=== PATIENT | male | born 1960 | race Caucasian/White ===

== ENCOUNTER → 2019-05-13 16:59 | Outpatient (CLI) | payer BC, SELFPAY ==
[2019-05-13 17:39] LABS: C-Reactive Protein < 0.2 mg/L (0.0-0.9)
[2019-05-13 18:23] LABS: Erythrocyte Sedimentation Rate 8 mm/hr (0-20)
[2019-05-16 23:07] LABS: IgG P18 Ab. Present (.); IgG P23 Ab. Absent (.); IgG P28 Ab. Present (.); IgG P30 Ab. Absent (.); IgG P39 Ab. Absent (.); IgG P41 Ab. Present (.); IgG P45 Ab. Absent (.); IgG P58 Ab. Absent (.); IgG P66 Ab. Absent (.); IgG P93 Ab. Absent (.); IgM P23 Ab. Absent (.); IgM P39 Ab. Absent (.); IgM P41 Ab. Absent (.)
[2019-05-17 07:10] LABS: Lyme IgG WB Interp. Negative (.); Lyme IgM WB Interp. Negative (.)
== END ==
PROVIDERS: Visit Provider Emergency Medicine
DX: R53.83 Other fatigue (principal)
CPT/HCPCS: 85651; 86140; 86617

== ENCOUNTER → 2020-05-27 17:45 | Outpatient (CLI) | payer BC, SELFPAY ==
[2020-05-27 20:01] LABS: Coronavirus 19 IgG Antibody Negative (Negative); Coronavirus 19 IgM Antibody Negative (Negative)
== END ==
PROVIDERS: Visit Provider Physician Assistant
DX: Z01.84 Encounter for antibody response examination (principal)
CPT/HCPCS: 86328

== ENCOUNTER → 2020-11-02 11:42 | Outpatient (POV) | payer BC, SELFPAY | PROVIDERS: Visit Provider Nurse Practitioner Family | DX: Z00.00 Encounter for general adult medical examination without abnormal findings (principal) ==

== ENCOUNTER → 2020-12-14 14:40 | Outpatient (CLI) | payer BC, SELFPAY ==
[2020-12-14 16:05] LABS: Basophils # 0.1 K/mm3 (0-0.2); Basophils % 0.9 % (0.1-2.0); Chloride 104 mmol/L (98-107); Eosinophils # 0.4 K/mm3 (0.0-0.4); Eosinophils % 5.8 % (0.1-12.0); Hematocrit 46.3 % (42.0-52.0); Hemoglobin 15.5 g/dL (14.1-18.0); Lymphocytes # 1.8 K/mm3 (0.7-4.5); Lymphocytes % 27.1 % (10-50); Mean Corpuscular HGB Conc 33.5 g/dL (31.8-35.4); Mean Corpuscular Hemoglobin 30.2 pg (27.0-31.2); Mean Corpuscular Volume 90.3 fl (80-94); Mean Platelet Volume 8.8 fl (7.4-10.4); Monocytes # 0.5 K/mm3 (0.1-1.0); Neutrophils # 3.9 K/mm3 (1.8-7.8); Neutrophils % 59.2 % (37.0-80.0); Platelet Count 236 K/mm3 (142-424); Red Blood Count 5.13 M/mm3 (4.60-6.20); Red Cell Distribution Width 14.2 % (11.5-17.5); Sodium 140 mmol/L (136-145); White Blood Count 6.6 K/mm3 (4.8-10.8)
[2020-12-14 16:06] LABS: Potassium 4.7 mmoL/L (3.5-5.1)
[2020-12-14 16:08] LABS: Alanine Aminotransferase 42 U/L (12-78); Albumin Level 4.5 g/dl (3.5-5.0); Albumin/Globulin Ratio 1.4 (1.1-1.8); Alkaline Phosphatase 71 U/L (38-126); Anion Gap 14.7 mEq/L (5-15); Aspartate Amino Transferase 42 U/L (17-59); Bilirubin,Total 0.7 mg/dl (0.2-1.3); Blood Urea Nitrogen 15 mg/dl (9-20); Carbon Dioxide 26 mmol/L (22.0-30.0); Cholesterol 213 mg/dl (140-200); Estimated Glomerular Filt Rate 76 ml/min (>60); GFR (African American) 93 ML/MIN (>60); Globulin 3.2 g/dL (1.3-3.2); Total Protein,Serum 7.7 g/dl (6.3-8.2); Triglycerides 168 mg/dl (30-150); VLDL Cholesterol 34 mg/dL (0-40)
[2020-12-14 16:09] LABS: Calcium 9.7 mg/dl (8.4-10.2); Chol/HDL Ratio 6.7 (1-3.5); Glucose 150 mg/dl (74-100); HDL Cholesterol 32 mg/dl (40-60)
[2020-12-14 16:21] LABS: Direct LDL Cholesterol 154.46 mg/dL (100-129)
[2020-12-14 16:24] LABS: Free T4 (Free Thyroxine) 1.03 ng/dl (0.78-2.19)
[2020-12-14 16:37] LABS: Thyroid Stimulating Hormone 2.99 uIU/mL (0.465-4.68)
[2020-12-14 21:49] LABS: Prostate Specific Ag Screen 4.6 ng/ml (0.0-4.0)
[2020-12-15 08:24] LABS: Hemoglobin A1C 6.5 % (4.0-6.0)
== END ==
PROVIDERS: Visit Provider Physician Assistant
DX: Z00.00 Encounter for general adult medical examination without abnormal findings (principal); R53.83 Other fatigue; R73.09 Other abnormal glucose; E55.9 Vitamin D deficiency, unspecified; Z12.5 Encounter for screening for malignant neoplasm of prostate
CPT/HCPCS: 80053; 80061; 82306; 83036; 84439; 84443; 85025; G0103

== ENCOUNTER → 2021-02-01 09:11 | Outpatient (POV) | payer BC, SELFPAY | PROVIDERS: Visit Provider Nurse Practitioner Family | DX: Z00.00 Encounter for general adult medical examination without abnormal findings (principal) ==

== ENCOUNTER 2021-08-26 14:20 | Emergency (ER) | payer BC, SELFPAY ==
[2021-08-26 16:06] VITALS: BP 157/100; PULSE 83; RESP 16; TEMP 36.6; O2SAT 96; BMI 31.1
--- NOTE | 2021-08-26 16:14 | HMH.EDUTC ---
[facility] [place] Clinical Impression: Low back pain Qualifiers: Chronicity: unspecified Back pain laterality: unspecified Sciatica presence: without sciatica Qualified Code(s): M54.50 - Low back pain, unspecified UTI (urinary tract infection) Qualifiers: Urinary tract infection type: site unspecified Hematuria presence: without hematuria Qualified Code(s): N39.0 - Urinary tract infection, site not specified Disposition: Home, Self-Care Condition on Discharge: Good Instructions: DI for Low Back Pain Additional Instructions: Drink plenty of fluids. Take tylenol or ibuprofen for pain or fever. Take the medications as directed. Follow up with your regular doctor. GO TO THE ER FOR ANY WORSENING SYMPTOMS Prescriptions: Sulfamethoxazole/Trimethoprim [Bactrim DS tablet] 1 each PO BID 10 Days #20 tab Transmission Status: Received by [id number] methylPREDNISolone [Medrol] 4 mg PO DIRECTED 6 Days #21 packet Transmission Status: Received by [facility] Referrals: Raymundo Fonseca MD [Primary Care Provider] - Time of Disposition: 16:34 Medical Decision Making - Medical Records Medical records reviewed: No: I reviewed the patient's medical records. - Jamie Inquiry Pt receiving controlled substance: No Vital Signs: 08/26/21 16:06 08/26/21 16:48 Temperature 97.8 F 97.8 F Temperature Source Oral Pulse Rate 83 Pulse Rate [Left] 83 Respiratory Rate 16 16 Blood Pressure 157/100 H Blood Pressure [Right Arm] 157/100 H Blood Pressure Mean [Right Arm] 119 02 Sat by Pulse Oximetry 96 - Lab Data Lab results reviewed: Yes: I reviewed the patient's lab results. Lab Results 08/26/21 16:20: Urine Color Dark yellow, Urine Appearance Clear, Urine pH 6.5, Ur Specific [place] 1.025, Urine Protein 1+, Urine Glucose (UA) Trace, Urine Ketones Negative, Urine Blood Negative, Urine Nitrate Negative, Urine Bilirubin Negative, Urine Urobilinogen 0.2, Ur Leukocyte Esterase Negative Orders (Tests/Meds): ORDERS Category Date Time Status Urine Culture Stat Micro 08/26/21 14:26 Received [facility] [place] HPI - General Stated complaint: possible kidney infection Time Seen by Provider: 08/26/21 16:14 Mode of Arrival: Ambulatory Source of Information: Patient Limitations: No Limitations Description of Symptoms (Recalled from Triage Doc. by RN): PT C/O L FLANK PAIN. STATES HIS GIRLFRIEND HAS A UTI. HEENT Symptoms (Recalled from RN notes): No Resp Symptoms (Recalled from RN notes): No Skin Symptoms (Recalled from RN notes): No MS Symptoms (Recalled from RN notes): No Functional Status (Recalled from RN notes): NA - History of Present Illness Provider Complaint: He states that for the past week or so he has had left sided low back pain that does not radiate any where. He denies any fever or chills. He denies feeling bad. He thought that he may have a uti or a prostate infection because he has had similar symptoms before. - Related Data Previous Rx's Medication Instructions Recorded ergocalciferol (vitamin D2) 1,250 1,250 mcg PO WEEKLY #5 cap 12/17/20 mcg (50,000 unit) capsule valacyclovir 1 gram tablet 1,000 mg PO BID PRN #30 tab 06/03/21 Sulfamethoxazole/Trimethoprim 1 each PO BID 10 Days #20 tab 08/26/21 [Bactrim DS tablet] methylPREDNISolone [Medrol] 4 mg PO DIRECTED 6 Days #21 08/26/21 packet Allergies Allergy/AdvReac Type Severity Reaction Status Date / Time No Known Allergies Allergy Verified 12/24/20 09:24 - Worker's Comp Is this a Worker's Comp case?: No [facility] History - Hepatitis A Screen Drug use history?: No High risk sexual behaviors?: No History of sexually transmitted infection?: No Currently employed?: No Childcare worker?: No Do you have indoor plumbing?: Yes Do you have electricity?: Yes Attestation statement:: This patient has been screened for Hepatitis A risk factors. I have reviewed the patient's past medical history: Yes Medical
[2021-08-26 16:20] LABS: Apearance,Urine Clear (Clear); Color,Urine Dark Yellow (Yellow); PH,Urine 6.5 (5.0-8.5); Protein,Urine 1+ (Negative); Specific Gravity, Urine 1.025 (1.005-1.030)
[2021-08-26 16:21] LABS: Bilirubin,Urine Negative (Negative); Blood, Urine Negative (Negative); Glucose,Urine (UA) Trace (Negative); Ketones,Urine Negative (Negative); UTC Leukocyte Esterase,Urine Negative (Negative); UTC Nitrate,Urine Negative (Negative); Urobilinogen,Urine 0.2 EU/dl (0.2)
[2021-08-26 16:48] VITALS: BP 157/100; PULSE 83; RESP 16; TEMP 36.6
[2021-08-30 20:08] LABS: Neisseria gonorrhoeae, NAA Negative (Negative)
== END 2021-08-26 16:49 | disposition home or self-care (01) ==
PROVIDERS: Emergency Provider Nurse Practitioner Family; PCP Emergency Medicine
DX: N30.00 Acute cystitis without hematuria (principal); I10 Essential (primary) hypertension
CPT/HCPCS: 81003; 87086; 87491; 87591; 99202; G0463

== ENCOUNTER → 2022-01-18 11:22 | Outpatient (CLI) | payer BC, SELFPAY ==
[2022-01-19 08:37] LABS: PSA, Free 0.96 ng/mL; Prostate Specific Ag 4.7 ng/mL (0.0-4.0)
== END ==
PROVIDERS: Visit Provider Urology
DX: N40.0 Benign prostatic hyperplasia without lower urinary tract symptoms (principal)
CPT/HCPCS: 36415; 84153; 84154

== ENCOUNTER → 2022-01-28 18:37 | Outpatient (CLI) | payer BC, SELFPAY ==
[2022-01-28 18:45] LABS: Adenovirus,PCR Not Detected (NotDetected); Bordetella Pertussis Not Detected (NotDetected); Chlamydophila Pneumoniae, PCR Not Detected (NotDetected); Coronavirus 19, PCR Not Detected (NotDetected); Coronavirus 229E Not Detected (NotDetected); Coronavirus NL63 Not Detected (NotDetected); Coronavirus OC43 Not Detected (NotDetected); Coronovirus HKU1,PCR Not Detected (NotDetected); Human Metapneumovirus Not Detected (NotDetected); Influenza A, PCR Not Detected (NotDetected); Influenza AH1, 2009 Not Detected (NotDetected); Influenza AH1, PCR Not Detected (NotDetected); Influenza AH3,PCR Not Detected (NotDetected); Influenza B, PCR Not Detected (NotDetected); Mycoplasma Pneumoniae, PCR Not Detected (NotDetected); Parainfluenza 1, PCR Not Detected (NotDetected); Parainfluenza 2, PCR Not Detected (NotDetected); Parainfluenza 3, PCR Not Detected (NotDetected); Parainfluenza 4, PCR Not Detected (NotDetected); Respiratory Syncytial Virus Not Detected (NotDetected); Rhinovirus/Enterovirus Not Detected (NotDetected)
== END ==
PROVIDERS: Visit Provider Nurse Practitioner Family
DX: Z11.52 Encounter for screening for COVID-19 (principal); R42 Dizziness and giddiness; R68.89 Other general symptoms and signs
CPT/HCPCS: 87581; 87632; 87798; C9803; U0003; U0005

== ENCOUNTER → 2022-03-01 16:10 | Outpatient (CLI) | payer BC, SELFPAY ==
[2022-03-01 13:58] LABS: Alanine Aminotransferase 46 U/L (12-78); Albumin Level 4.4 g/dl (3.5-5.0); Albumin/Globulin Ratio 1.8 (1.1-1.8); Alkaline Phosphatase 84 U/L (38-126); Anion Gap 11.4 mEq/L (5-15); Aspartate Amino Transferase 34 U/L (17-59); Bilirubin,Total 0.4 mg/dl (0.2-1.3); Blood Urea Nitrogen 14 mg/dl (9-20); Calcium 9.2 mg/dl (8.4-10.2); Carbon Dioxide 29 mmol/L (22.0-30.0); Chloride 102 mmol/L (98-107); Chol/HDL Ratio 6.9 (1-3.5); Cholesterol 200 mg/dl (140-200); Estimated Glomerular Filt Rate 98 ml/min (>60); GFR (African American) 119 ML/MIN (>60); Globulin 2.4 g/dL (1.3-3.2); Glucose 216 mg/dl (74-100); HDL Cholesterol 29 mg/dl (40-60); Potassium 4.4 mmoL/L (3.5-5.1); Sodium 138 mmol/L (136-145); Total Protein,Serum 6.8 g/dl (6.3-8.2); Triglycerides 113 mg/dl (30-150); VLDL Cholesterol 23 mg/dL (0-40)
[2022-03-01 14:01] LABS: Basophils # 0.1 K/mm3 (0-0.2); Eosinophils # 0.3 K/mm3 (0.0-0.4); Hematocrit 46.3 % (42.0-52.0); Hemoglobin 16.4 g/dL (14.1-18.0); Lymphocytes # 1.7 K/mm3 (0.7-4.5); Lymphocytes % 26.1 % (10-50); Mean Corpuscular HGB Conc 35.4 g/dL (31.8-35.4); Mean Corpuscular Hemoglobin 32.4 pg (27.0-31.2); Mean Corpuscular Volume 91.5 fl (80-94); Mean Platelet Volume 8.7 fl (7.4-10.4); Monocytes # 0.5 K/mm3 (0.1-1.0); Monocytes % 8.4 % (1.7-9.3); Neutrophils # 3.8 K/mm3 (1.8-7.8); Neutrophils % 59.5 % (37.0-80.0); Platelet Count 243 K/mm3 (142-424); Red Blood Count 5.06 M/mm3 (4.60-6.20); Red Cell Distribution Width 14.2 % (11.5-17.5); White Blood Count 6.4 K/mm3 (4.8-10.8)
[2022-03-01 14:10] LABS: Direct LDL Cholesterol 140.01 mg/dL (100-129)
[2022-03-01 14:15] LABS: Free T4 (Free Thyroxine) 1.13 ng/dl (0.78-2.19)
[2022-03-01 14:16] LABS: 25-OH Vitamin D, Total 31.4 ng/mL (30-100)
[2022-03-01 14:30] LABS: Prostate Specific Ag Screen 5.8 ng/ml (0.0-4.0); Thyroid Stimulating Hormone 2.27 uIU/mL (0.465-4.68)
[2022-03-02 09:54] LABS: Testosterone,Total 325 ng/dL (264-916)
== END ==
PROVIDERS: PCP Emergency Medicine; Visit Provider Emergency Medicine
DX: E11.9 Type 2 diabetes mellitus without complications (principal); S30.1XXA Contusion of abdominal wall, initial encounter; E55.9 Vitamin D deficiency, unspecified; Z79.84 Long term (current) use of oral hypoglycemic drugs
CPT/HCPCS: 80053; 80061; 82306; 83036; 84403; 84439; 84443; 85025; G0103

== ENCOUNTER → 2022-10-11 09:49 | Outpatient (CLI) | payer BC, SELFPAY ==
[2022-10-11 18:04] LABS: Basophils # 0.2 K/mm3 (0-0.2); Basophils % 2.6 % (0.1-2.0); Eosinophils # 0.4 K/mm3 (0.0-0.4); Eosinophils % 6.3 % (0.1-12.0); Hematocrit 49.1 % (42.0-52.0); Hemoglobin 16.2 g/dL (14.1-18.0); Lymphocytes # 1.6 K/mm3 (0.7-4.5); Lymphocytes % 24.9 % (10-50); Mean Corpuscular Hemoglobin 30.7 pg (27.0-31.2); Mean Platelet Volume 9.7 fl (7.4-10.4); Monocytes # 0.4 K/mm3 (0.1-1.0); Monocytes % 6.4 % (1.7-9.3); Neutrophils # 3.9 K/mm3 (1.8-7.8); Neutrophils % 59.8 % (37.0-80.0); Platelet Count 227 K/mm3 (142-424); Red Blood Count 5.28 M/mm3 (4.60-6.20); Red Cell Distribution Width 14.1 % (11.5-17.5); White Blood Count 6.4 K/mm3 (4.8-10.8)
[2022-10-11 18:06] LABS: Alanine Aminotransferase 65 U/L (12-78); Albumin Level 4.1 g/dl (3.5-5.0); Albumin/Globulin Ratio 1.6 (1.1-1.8); Alkaline Phosphatase 82 U/L (38-126); Amylase 48 U/L (30-110); Aspartate Amino Transferase 58 U/L (17-59); Bilirubin,Total 0.6 mg/dl (0.2-1.3); Blood Urea Nitrogen 19 mg/dl (9-20); Carbon Dioxide 28 mmol/L (22.0-30.0); Chloride 101 mmol/L (98-107); Chol/HDL Ratio 9.3 (1-3.5); Cholesterol 139 mg/dl (140-200); Estimated Glomerular Filt Rate 86 ml/min (>60); GFR (African American) 104 ML/MIN (>60); Globulin 2.6 g/dL (1.3-3.2); Glucose 232 mg/dl (74-100); HDL Cholesterol 15 mg/dl (40-60); Lipase 97 U/L (23-300); Sodium 138 mmol/L (136-145); Total Protein,Serum 6.7 g/dl (6.3-8.2); Triglycerides 135 mg/dl (30-150); VLDL Cholesterol 27 mg/dL (0-40)
[2022-10-11 18:14] LABS: Hemoglobin A1C 10.5 % (4.0-6.0)
[2022-10-11 18:17] LABS: Direct LDL Cholesterol 107.34 mg/dL (100-129)
== END ==
PROVIDERS: PCP Student in an Organized Health Care Education/Training Program; Visit Provider Student in an Organized Health Care Education/Training Program
DX: R19.7 Diarrhea, unspecified (principal); R19.4 Change in bowel habit
CPT/HCPCS: 80053; 80061; 82150; 83036; 83690; 85025

== ENCOUNTER → 2022-12-01 09:20 | Outpatient (CLI) | payer BC, SELFPAY ==
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
== END ==
PROVIDERS: PCP Student in an Organized Health Care Education/Training Program; Visit Provider Student in an Organized Health Care Education/Training Program
DX: R10.9 Unspecified abdominal pain (principal); R11.2 Nausea with vomiting, unspecified; R19.7 Diarrhea, unspecified
CPT/HCPCS: 76700

== ENCOUNTER → 2023-01-02 10:17 | Outpatient (CLI) | payer BC, SELFPAY ==
--- NOTE | 2023-01-02 10:18 | NM_ITS ---
FINAL REPORT TECHNIQUE: The patient was injected with 8.31 mCi of technetium 99m Choletec and subsequently 2.2 mcg of Kinevac. Images of the abdomen were obtained for one hour. CLINICAL HISTORY: ABDOMINAL PAIN 10:40AM 8.31MCI TC CHOLETEC 11:45AM 2.2MCG CCK INJ INTO LT ANT PT C/O ABDOMINAL PAIN WITH CCK FINDINGS: Hepatic uptake is normal. There is gallbladder and small bowel activity at 30 minutes. Post Kinevac images render an ejection fraction of 10%. IMPRESSION: Abnormally depressed ejection fraction. Reviewed, Interpreted and Dictated by Abhi Greene MD Transcribed by Kelly Kaba Authenticated and [facility]
== END ==
LOC: RAD 10:18
PROVIDERS: PCP Emergency Medicine; Visit Provider Emergency Medicine
DX: R10.9 Unspecified abdominal pain (principal)
CPT/HCPCS: 78226; A9537; J2805

== ENCOUNTER 2023-12-14 22:35 | Outpatient (CLI) | payer BC, SELFPAY ==
[2023-12-14 18:51] LABS: Basophils # 0.1 K/mm3 (0-0.2); Basophils % 0.8 % (0.1-2.0); Eosinophils # 0.2 K/mm3 (0.0-0.4); Eosinophils % 1.4 % (0.1-12.0); Hematocrit 56.4 % (42.0-52.0); Lymphocytes # 1.9 K/mm3 (0.7-4.5); Lymphocytes % 18.5 % (10-50); Mean Corpuscular Volume 96.6 fl (80-94); Mean Platelet Volume 9.6 fl (7.4-10.4); Monocytes # 0.7 K/mm3 (0.1-1.0); Monocytes % 6.5 % (1.7-9.3); Neutrophils # 7.6 K/mm3 (1.8-7.8); Neutrophils % 72.8 % (37.0-80.0); Platelet Count 246 K/mm3 (142-424); Red Blood Count 5.84 M/mm3 (4.60-6.20); Red Cell Distribution Width 13.9 % (11.5-17.5); White Blood Count 10.4 K/mm3 (4.8-10.8)
[2023-12-14 19:01] LABS: Hemoglobin 18.1 g/dL (14.1-18.0)
[2023-12-14 19:46] LABS: Alanine Aminotransferase 36 U/L (12-78); Albumin Level 4.7 g/dl (3.5-5.0); Albumin/Globulin Ratio 1.6 (1.1-1.8); Alkaline Phosphatase 79 U/L (38-126); Amylase 64 U/L (30-110); Anion Gap 13.3 mEq/L (5-15); Aspartate Amino Transferase 34 U/L (17-59); Bilirubin,Direct 0.2 mg/dl (0.0-0.4); Bilirubin,Indirect 0.8 mg/dL (0.0-0.9); Bilirubin,Unconjugated 0.8 mg/dL (0.0-1.1); Blood Urea Nitrogen 17 mg/dl (9-20); Calcium 9.6 mg/dl (8.4-10.2); Carbon Dioxide 22 mmol/L (22.0-30.0); Chloride 104 mmol/L (98-107); Chol/HDL Ratio 8.8 (1-3.5); Cholesterol 229 mg/dl (140-200); Estimated Glomerular Filt Rate 86 ml/min (>60); GFR (African American) 103 ML/MIN (>60); Glucose 207 mg/dl (74-100); HDL Cholesterol 26 mg/dl (40-60); Lipase 116 U/L (23-300); Potassium 5.3 mmoL/L (3.5-5.1); Sodium 134 mmol/L (136-145); Total Protein,Serum 7.7 g/dl (6.3-8.2); Triglycerides 185 mg/dl (30-150); VLDL Cholesterol 37 mg/dL (0-40)
[2023-12-14 19:51] LABS: 25-OH Vitamin D, Total 29.6 ng/mL (30-100)
[2023-12-14 20:01] LABS: Direct LDL Cholesterol 163.41 mg/dL (100-129)
[2023-12-14 20:18] LABS: Hemoglobin A1C 10.9 % (4.0-6.0)
[2023-12-14 20:20] LABS: Prostate Specific Ag Screen 4.6 ng/ml (0.0-4.0); Thyroid Stimulating Hormone 2.77 uIU/mL (0.465-4.68)
[2023-12-14 20:39] LABS: Vitamin B12 750 pg/mL (239-931)
[2023-12-16 11:50] LABS: Testosterone,Total 221 ng/dL (264-916)
== END 2023-12-14 23:59 ==
LOC: LAB.DROPOF 22:35
PROVIDERS: PCP Family Medicine; Visit Provider Family Medicine
DX: R10.9 Unspecified abdominal pain (principal); E11.9 Type 2 diabetes mellitus without complications; E66.9 Obesity, unspecified; E55.9 Vitamin D deficiency, unspecified; R10.11 Right upper quadrant pain; Z79.84 Long term (current) use of oral hypoglycemic drugs; Z68.31 Body mass index [BMI] 31.0-31.9, adult; Z79.899 Other long term (current) drug therapy; Z12.5 Encounter for screening for malignant neoplasm of prostate
CPT/HCPCS: 80053; 80061; 80076; 82150; 82306; 82607; 83036; 83690; 84403; 84443; 85025; G0103

== ENCOUNTER → 2024-03-01 10:15 | Outpatient (CLI) | payer BC, SELFPAY | LOC: SL 10:16 | PROVIDERS: PCP Family Medicine; Visit Provider Family Medicine | DX: G47.33 Obstructive sleep apnea (adult) (pediatric) (principal); G47.36 Sleep related hypoventilation in conditions classified elsewhere | CPT/HCPCS: G0399 ==

== ENCOUNTER 2024-03-09 14:22 | Emergency (ER) | payer OTHER, SELFPAY ==
[2024-03-09] VITALS (10 sets, daily range): BP systolic 141–185; BP diastolic 70–118; PULSE 54–89; RESP 13–16; TEMP 36.6; O2SAT 92–99; BMI 32.1
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
[2024-03-09 14:59] LABS: Chloride 100 mmol/L (98-107)
[2024-03-09 15:00] LABS: Potassium 5.2 mmoL/L (3.5-5.1); Sodium 132 mmol/L (136-145)
[2024-03-09 15:02] LABS: Alanine Aminotransferase 43 U/L (12-78); Aspartate Amino Transferase 38 U/L (17-59); Blood Urea Nitrogen 20 mg/dl (9-20); Creatinine Clearance Estimated 112 mL/min (50-200); Estimated Glomerular Filt Rate 75 ml/min (>60); GFR (African American) 91 ML/MIN (>60)
[2024-03-09 15:03] LABS: Albumin Level 4.7 g/dl (3.5-5.0); Albumin/Globulin Ratio 1.5 (1.1-1.8); Alkaline Phosphatase 91 U/L (38-126); Anion Gap 14.2 mEq/L (5-15); Bilirubin,Total 0.7 mg/dl (0.2-1.3); Calcium 9.5 mg/dl (8.4-10.2); Carbon Dioxide 23 mmol/L (22.0-30.0); Globulin 3.1 g/dL (1.3-3.2); Total Protein,Serum 7.8 g/dl (6.3-8.2)
[2024-03-09 15:05] LABS: Glucose 436 mg/dl (74-100)
[2024-03-09 15:06] LABS: Activated Partial Thrombo Time 25.4 seconds (22.8-30.6); Prothrombin Time 10.8 seconds (10.1-12.5)
[2024-03-09] MEDS: IOPAMIDOL-370 (76%);100ML BOTTLE 100 ML IV ×2 (15:38→15:45)
[2024-03-09] MEDS: SODIUM CHLORIDE 0.9% 10ML SYR (RAD ONLY) 10 ML IV ×2 (15:38→15:45)
[2024-03-09] MEDS: 0.9 % SODIUM CHLORIDE 50 ML VIAL IV (15:45)
[2024-03-09] MEDS: LACTATED RINGERS 1000ML 1,000 ML 999 ML IV (16:03)
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
[2024-03-09] MEDS: ONDANSETRON 4MG/2ML VIAL 4 MG IV (17:03)
--- NOTE | 2024-03-09 17:34 | ECG_ITS ---
APPROVED REPORT Exam: Resting ECG HR:71 bpm ECG Measurements Heart Rate 71 AXES MO 172 P 36 QRSd 86 QRS 9 QT 372 T 5 QTc 394 Conclusion SINUS RHYTHM POSSIBLE ANTERIOR MYOCARDIAL INFARCTION , OF INDETERMINATE AGE [30 ms Q WAVE IN V3/V4, OR R < 0.2 mV IN V4] ABNORMAL ECG Electronically signed by : CUONG ABDI, 03/10/2024 00:53:29
[2024-03-09] MEDS: METOCLOPRAMIDE HCL 10MG/2ML VIAL 5 MG IVP (17:43)
[2024-03-09 18:18] LABS: Troponin I < 0.01 ng/ml (0.00-0.034)
[2024-03-09 19:04] LABS: Lipase 70 U/L (23-300)
[2024-03-09] MEDS: SODIUM CHLORIDE 0.9% 25ML BAG 25 ML IV (19:12)
[2024-03-09] MEDS: PROMETHAZINE HCL 25MG/ML 1ML VIAL 12.5 MG IV (19:12)
== END 2024-03-09 20:18 | disposition home or self-care (01) ==
PROVIDERS: Emergency Medicine; Emergency Provider Emergency Medicine; PCP Physician Assistant
DX: M54.2 Cervicalgia; R51.9 Headache, unspecified; R11.2 Nausea with vomiting, unspecified; E11.65 Type 2 diabetes mellitus with hyperglycemia; R61 Generalized hyperhidrosis; V49.40XA Driver injured in collision with unspecified motor vehicles in traffic accident, initial encounter; Z79.84 Long term (current) use of oral hypoglycemic drugs; Z79.85 Long-term (current) use of injectable non-insulin antidiabetic drugs; Y92.410 Unspecified street and highway as the place of occurrence of the external cause
CPT/HCPCS: 70450; 70496; 70498; 71275; 72125; 72128; 72131; 73000; 73030; 74174; 80053; 83690; 84484; 85610; 85730; 93005; 96361; 96374; 96375; 99285; J2405; J7120; Q9967

== ENCOUNTER 2024-09-23 15:30 | Outpatient (CLI) | payer BC, SELFPAY ==
[2024-09-23 18:38] LABS: Basophils # 0.1 K/mm3 (0-0.2); Basophils % 1.4 % (0.1-2.0); Eosinophils # 0.3 K/mm3 (0.0-0.4); Eosinophils % 3.9 % (0.1-12.0); Hematocrit 48.6 % (42.0-52.0); Hemoglobin 16.3 g/dL (14.1-18.0); Lymphocytes # 2.2 K/mm3 (0.7-4.5); Lymphocytes % 28.8 % (10-50); Mean Corpuscular HGB Conc 33.6 g/dL (31.8-35.4); Mean Corpuscular Hemoglobin 29.9 pg (27.0-31.2); Mean Corpuscular Volume 88.9 fl (80-94); Mean Platelet Volume 8.6 fl (7.4-10.4); Monocytes # 0.6 K/mm3 (0.1-1.0); Monocytes % 8.4 % (1.7-9.3); Neutrophils # 4.3 K/mm3 (1.8-7.8); Neutrophils % 57.4 % (37.0-80.0); Platelet Count 198 K/mm3 (142-424); Red Blood Count 5.47 M/mm3 (4.60-6.20); Red Cell Distribution Width 13.9 % (11.5-17.5); White Blood Count 7.5 K/mm3 (4.8-10.8)
[2024-09-23 19:05] LABS: Alanine Aminotransferase 36 U/L (12-78); Albumin Level 4.6 g/dl (3.5-5.0); Albumin/Globulin Ratio 1.8 (1.1-1.8); Alkaline Phosphatase 64 U/L (38-126); Anion Gap 15.8 mEq/L (5-15); Aspartate Amino Transferase 30 U/L (17-59); Bilirubin,Total 0.5 mg/dl (0.2-1.3); Blood Urea Nitrogen 20 mg/dl (9-20); Calcium 9.8 mg/dl (8.4-10.2); Carbon Dioxide 26 mmol/L (22.0-30.0); Chloride 103 mmol/L (98-107); Estimated Glomerular Filt Rate 75 ml/min (>60); GFR (African American) 91 ML/MIN (>60); Globulin 2.5 g/dL (1.3-3.2); Glucose 167 mg/dl (74-100); Potassium 4.8 mmoL/L (3.5-5.1); Sodium 140 mmol/L (136-145); Total Protein,Serum 7.1 g/dl (6.3-8.2)
[2024-09-23 19:11] LABS: C-Reactive Protein 0.8 mg/L (0-4)
[2024-09-23 19:37] LABS: Thyroid Stimulating Hormone 3.16 uIU/mL (0.465-4.68)
[2024-09-23 20:13] LABS: Vitamin B12 774 pg/mL (239-931)
[2024-09-23 20:26] LABS: Folate 7.96 ng/mL
[2024-09-23 21:19] LABS: Microalbumin/Creatinine Ratio 76.7
[2024-09-23 21:24] LABS: Creatinine,Urine Random 131 mg/dL (Not Estab.)
[2024-09-23 21:35] LABS: Hemoglobin A1C 9.6 % (4.0-6.0)
== END 2024-09-23 23:59 | disposition home or self-care (01) ==
LOC: LAB.DROPOF 09-24 15:22
PROVIDERS: PCP Internal Medicine; Visit Provider Internal Medicine
DX: R53.83 Other fatigue (principal); I10 Essential (primary) hypertension; R68.89 Other general symptoms and signs; E11.9 Type 2 diabetes mellitus without complications; Z68.31 Body mass index [BMI] 31.0-31.9, adult; Z79.85 Long-term (current) use of injectable non-insulin antidiabetic drugs
CPT/HCPCS: 80050; 80053; 82043; 82306; 82570; 82607; 82746; 83036; 84443; 85025; 86140

== ENCOUNTER 2024-10-07 11:15 | Outpatient (CLI) | payer BC, SELFPAY ==
[2024-10-07 19:12] LABS: Alanine Aminotransferase 38 U/L (12-78); Albumin Level 4.7 g/dl (3.5-5.0); Albumin/Globulin Ratio 1.8 (1.1-1.8); Alkaline Phosphatase 65 U/L (38-126); Anion Gap 12.4 mEq/L (5-15); Aspartate Amino Transferase 36 U/L (17-59); Bilirubin,Total 0.8 mg/dl (0.2-1.3); Blood Urea Nitrogen 16 mg/dl (9-20); Calcium 9.8 mg/dl (8.4-10.2); Carbon Dioxide 31 mmol/L (22.0-30.0); Chloride 100 mmol/L (98-107); Chol/HDL Ratio 6.3 (1-3.5); Cholesterol 157 mg/dl (140-200); Estimated Glomerular Filt Rate 85 ml/min (>60); GFR (African American) 103 ML/MIN (>60); Globulin 2.6 g/dL (1.3-3.2); Glucose 161 mg/dl (74-100); HDL Cholesterol 25 mg/dl (40-60); Potassium 5.4 mmoL/L (3.5-5.1); Sodium 138 mmol/L (136-145); Total Protein,Serum 7.3 g/dl (6.3-8.2); Triglycerides 94 mg/dl (30-150); VLDL Cholesterol 19 mg/dL (0-40)
[2024-10-07 19:22] LABS: Direct LDL Cholesterol 123.05 mg/dL (100-129)
== END 2024-10-07 23:59 | disposition home or self-care (01) ==
LOC: LAB.DROPOF 10-08 11:16
PROVIDERS: PCP Internal Medicine; Visit Provider Internal Medicine
DX: R97.20 Elevated prostate specific antigen [PSA] (principal); Z68.31 Body mass index [BMI] 31.0-31.9, adult; E66.9 Obesity, unspecified; E11.65 Type 2 diabetes mellitus with hyperglycemia; Z79.84 Long term (current) use of oral hypoglycemic drugs; Z79.85 Long-term (current) use of injectable non-insulin antidiabetic drugs
CPT/HCPCS: 80053; 80061

== ENCOUNTER 2024-10-11 10:03 | Outpatient (RCR) | payer BC, SELFPAY ==
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
== END 2024-10-11 23:59 | disposition home or self-care (01) ==
LOC: PT 10:03
PROVIDERS: PCP Internal Medicine; Visit Provider Internal Medicine
DX: R42 Dizziness and giddiness (principal)
CPT/HCPCS: 97163

== ENCOUNTER → 2024-12-09 20:10 | Outpatient (CLI) | payer OTHER, SELFPAY | LOC: SL 20:12 | PROVIDERS: PCP Internal Medicine; Visit Provider Specialist | DX: G47.33 Obstructive sleep apnea (adult) (pediatric) (principal); R53.83 Other fatigue | CPT/HCPCS: 95811 ==

== ENCOUNTER 2024-12-11 16:50 | Outpatient (CLI) | payer OTHER, SELFPAY ==
[2024-12-11 20:00] LABS: Creatinine,Urine Random 41 mg/dL (Not Estab.)
[2024-12-11 20:02] LABS: Microalbumin/Creatinine Ratio 64.1
[2024-12-11 20:20] LABS: Alanine Aminotransferase 44 U/L (12-78); Albumin Level 4.8 g/dl (3.5-5.0); Alkaline Phosphatase 62 U/L (38-126); Anion Gap 13.7 mEq/L (5-15); Aspartate Amino Transferase 37 U/L (17-59); Blood Urea Nitrogen 14 mg/dl (9-20); Calcium 9.6 mg/dl (8.4-10.2); Carbon Dioxide 26 mmol/L (22.0-30.0); Chloride 101 mmol/L (98-107); Estimated Glomerular Filt Rate 85 ml/min (>60); GFR (African American) 103 ML/MIN (>60); Globulin 2.4 g/dL (1.3-3.2); Glucose 137 mg/dl (74-100); Potassium 4.7 mmoL/L (3.5-5.1); Sodium 136 mmol/L (136-145); Total Protein,Serum 7.2 g/dl (6.3-8.2)
[2024-12-11 20:38] LABS: Hemoglobin A1C 7.6 % (4.0-6.0)
== END 2024-12-11 23:59 | disposition home or self-care (01) ==
LOC: LAB.DROPOF 12-12 16:50
PROVIDERS: PCP Internal Medicine; Visit Provider Internal Medicine
DX: E11.65 Type 2 diabetes mellitus with hyperglycemia (principal); Z79.84 Long term (current) use of oral hypoglycemic drugs
CPT/HCPCS: 80053; 82043; 82570; 83036

== ENCOUNTER 2025-08-07 09:44 | Outpatient (CLI) | payer OTHER, SELFPAY ==
[2025-08-07 15:27] LABS: Hematocrit 51.0 % (42.0-52.0); Hemoglobin 16.8 g/dL (14.1-18.0); Immature Granulocytes % 0.4 %; Mean Corpuscular HGB Conc 32.9 g/dL (31.8-35.4); Mean Corpuscular Hemoglobin 29.8 pg (27.0-31.2); Mean Corpuscular Volume 90.4 fl (80-94); Nucleated Red Blood Cells % 0 %; Platelet Count 242 K/mm3 (142-424); Red Blood Count 5.64 M/mm3 (4.60-6.20); Red Cell Distribution Width-SD 43.5 fL; White Blood Count 7.5 K/mm3 (4.8-10.8)
[2025-08-07 18:45] LABS: Hemoglobin A1C 7.4 % (4.0-6.0)
[2025-08-07 18:49] LABS: Albumin Level 4.6 g/dl (3.5-5.0); Chloride 99 mmol/L (98-107); Potassium 4.9 mmoL/L (3.5-5.1); Sodium 136 mmol/L (136-145)
[2025-08-07 18:52] LABS: Alanine Aminotransferase 28 U/L (12-78); Albumin/Globulin Ratio 1.4 (1.1-1.8); Alkaline Phosphatase 89 U/L (38-126); Anion Gap 13.9 mEq/L (5-15); Aspartate Amino Transferase 34 U/L (17-59); Bilirubin,Total 0.8 mg/dl (0.2-1.3); Blood Urea Nitrogen 20 mg/dl (9-20); Carbon Dioxide 28 mmol/L (22.0-30.0); Creatinine,Serum 1.00 mg/dl (0.66-1.25); Estimated Glomerular Filt Rate 75 ml/min (>60); GFR (African American) 91 ML/MIN (>60); Globulin 3.3 g/dL (1.3-3.2); Total Protein,Serum 7.9 g/dl (6.3-8.2)
[2025-08-07 18:53] LABS: Calcium 9.4 mg/dl (8.4-10.2); Glucose 113 mg/dl (74-100)
[2025-08-07 19:20] LABS: Thyroid Stimulating Hormone 2.83 uIU/mL (0.465-4.68)
--- OUTSIDE RECORDS SUMMARY | 2025-08-08 10:07 | XMS_ITS | Data Portability ---
Author Organization [facility] AD[facility] Address [address] [place] [address] Assessment No assessment recorded. Plan of Treatment Reminders Order Date Submit Date Provider Last Modified By Organization Details Last Modified Time Details Appointments OV EST 15 2025 10:15A Melonie Mac Jr, MD Not available Not available Not available Lab PSA, total + free, serum or plasma 2024 025 [email or web address] [facility] (Laboratory), [address] [place] [address] [place], [address], 02/05/2025 14:41:33 PSA, total, serum or plasma 2023 024 [email or web address] [facility] (Laboratory), [address] [place] [address] [place], [address], 01/19/2024 07:49:15 Referral None recorded. Procedures None recorded. Surgeries None recorded. Imaging None recorded. Medication Orders sildenafi l 50 mg tablet 2024 025 [facility] [address] [place], [address], 02/05/2025 11:48:46 sildenafi l (pulmonar y hypertens ion) 20 mg tablet 2023 024 [email or web address] Not available 02/05/2025 15:57:18 Patient TargetsNo targets recorded. Patient InstructionsNo instructions recorded. Reason for Referral None Reported. Results Created Date Observation Date Name Description Value Unit Range Abnormal Flag Note LastModifiedBy Organization Detail LastModifiedTime 01/12/2001/12/2024 PROST ATE SPECI FIC AG (PSA) prostate specific Ag (PSA) 7.58 NG/mL 0.0-4. 0 high Not Available [facility] (Lab Registration) [address] [place], [address], 01/12/2024 17:55:22 01/12/20 24 01/12/2024 PROST ATE SPECI FIC AG (PSA) note Unles s other castro noted testi ng perfo rmed at: [facility] [address] [place] [address] [phone] Terell craft MD CLIA: [id number] Not Available [facility] (Lab Registration) [address] [place], [address], 01/12/2024 17:55:22 02/06/20 25 02/05/2025 PSA TOTAL + %FREE note Unles s other castro noted testi ng perfo rmed at: [facility] [address] [place], [place] [id number] [phone] Terell craft MD CLIA: [id number] Not Available [facility] (Lab Registration) [address] [place], [address], 02/06/2025 08:17:05 02/06/20 25 02/06/2025 PSA TOTAL + %FREE prostate specific Ag, serum 5.1 NG/mL 0.0-4. 0 high Jayna ECLIA metho dolog y. . Accor ding to the Ameri can Urolo gical Assoc iatio n, Serum PSA shoul d decre ase and remai n at undet ectab le level s after radic al prost atect bobby. The AUA defin es bioch emica l recur rence as an initi al PSA value 0.2 ng/mL or great er follo wed by a subse quent confi rmato ry PSA value 0.2 ng/mL or great er. Value s obtai harinder with diffe rent assay metho ds or kits canno t be used inter tavarez eably . Resul ts canno t be inter prete d as absol tonawanda evide nce of the prese nce or absen ce of gustavo ryder se. SENT TO REFER ENCE LAB Not Available [facility] (Lab Registration) [address], [place], [address], 02/06/2025 08:17:05 02/06/20 25 02/06/2025 PSA TOTAL + %FREE PSA, free 1.83 NG/mL n/a Jayna ECLIA metho dolog y. SENT TO REFER ENCE LAB Not Available [facility] (Lab Registration) [address] [place], [address], 02/06/2025 08:17:05 02/06/20 25 02/06/2025 PSA TOTAL + %FREE % free PSA 35.9 % The table below lists the proba bilit y of prost ate cance r for men with non-s uspic ious MARILYNN resul ts and total PSA betwe en 4 and 10 ng/mL , by patie nt age (Crissy hai et al, GABY 1998, 279:1 542). % Free PSA 50-64 yr 65-75 yr 0.00- 10.00 % 56% 55% 10.01 -15.0 0% 24% 35% 15.01 -20.0 0% 17% 23% 20.01 -25.0 0% 10% 20% >25.0 0% 5% 9% Pleas e note: Socorro serrato et al did not make speci fic recom menda tions regar ding the use of perce nt free PSA for any other popul ation of men. Perfo rmed at: [facility] n [address] [facility] [address], [place] [address] Lab Direc tor: Shorty sweeney PhD, Phone : [phone] SENT TO REFER ENCE LAB Not Available [facility] (Lab Registration) [address] [place], [address], 02/06/2025 08:17:05 02/29/2002/28/2025 US, echoc ardio gram, trans thora cic, compl ete, w/ color flow [facility] [address] [place] [address] Phone: Fax: Name: MARGE DILLON Exam Date: 025 : 961 Age 64 years Gender : M Access ion: [id number] Physic mert: RICH NGILSON M Facili ty: [facility] Facili ty HSV: Outpat ient Exam: ECHOCA RDIOGR AM Conclu sions: 1. Normal LV size and functi on. 2. Estima lyssa left ventri cular ejecti on fracti on is 55-60% . 3. There is mild concen tric left ventri orville hypert rophy. 4. There is no signif icant valvul ar stenos is or regurg itatio n by Dopple r flow analys is. Findin gs: Left Ventri orville:Th ere is mild concen tric left ventri orville hypert rophy. No left ventri cular thromb us noted. Normal LV size and functi on. Left Atrium :Bridgette l left atrial size. Right Atrium :Bridgette l right atrial size. Mitral Valve: Normal mitral valve struct ure and functi on. No mitral stenos is. Tricus pid Valve: Normal tricus pid valve struct ure. Aortic Valve: Normal aortic valve struct ure and functi on. No aortic valve stenos is. Pulmon ic Valve: The pulmon ic valve is poorly seen. Aorta: There is mild aortic root dilata tion. Pulmon carina Artery :The pulmon carina artery is not well visual ized. Perica rdium: Normal perica rdium. There is no signif icant perica rdial effusi on. Electr onical ly signed CHARLI SELLERS MD 5 7:29 PM Study Data 2D Measur ements LVIDd: 4.04 (4.2-5 .9) cm LVIDs: 2.66 (2.1-4 .0) cm IVSDd: 1.65 (0.6-1 .0) cm IVSDs: 2.01 (0.7-1 .1) cm LVPWd: 1.62 (0.6-1 .0) cm LVPWs: 1.91 (0.9-1 .4) cm Aortic Root:4 .05 (2.0-3 .7) cm LA/AR Ratio: 0.69 EF:63. 67 (>=55) % Simpso n's EF:59. 81 % FS:34. 16 (25-43 ) % SV:45. 63 (70-10 0) ml SI:20. 58 EDV:71 .67 (67-15 5) ml EDV Index: 32.33 (35-75 ) ml/m2 ESV:26 .04 (22-58 ) ml ESV Index: 11.74 (12-30 ) ml/m2 LA:2.7 8 (3.0-4 .0) cm LV Mass:3 24 (88-22 4) g LV Mass index: 146.13 (49-11 5) g/m2 LVOT Diam:1 .96 (1.8-2 .4) cm M-MODE Measur ements EPSS:0 .78 cm Mitral Valve Mitral PV:0.6 m/s Mitral P.4 4 mmHg Mitral VTI:24 .53 cm Peak E:0.5 (0.6-1 .3) m/s Thor ochoa d by LAUREN Andujar MD 2024-0 02-28 09:28: 40 MV Mean Torsten:0. 39 m/s Mitral Mean Grad:0 .73 mmHg Peak A:0.56 (<=.7) m/s Peak A Grad:1 .25 mmHg E/A Ratio: 0.89 (.75-1 .5) e' latera l:9 (>=10) cm/s e' Medial :9 (>=10) cm/s E/e' Latera l:5.56 (<=8) E/e' Medial :5.56 (<=8) A' lat:13 cm/s A' sep:13 cm/s MR peak torsten:0. 87 m/s PHT:83 ms MVA by PHT:2. 65 (4-6) cm2 Tricus pid Valve TR Peak Torsten:0. 85 m/s TR Peak Grad:2 .89 mmHg TAPSE: 2.74 (>=1.6 ) cm Aortic Valve Peak:0 .88 (<=2.5 ) m/s Peak Grad:3 .1 (<=16) mmHg LVOT PV:0.7 4 (0.7-1 .1) m/s LVOT P.1 9 mmHg Pulmon ic Valve Peak Torsten:0. 85 (0.6-0 .9) m/s Peak Grad:2 .89 (<=3) mmHg Report for MARGE Craft [id number] on 5 Dictat ed By: CHARLI AGUAYO Transc ribed By: PRITI ROSADO Transc ribed On: 025 9:28 AM Electr onical ly signed by: CHALRI AGUAYO 025 Thank you for referr ing MARGE DILLON to [facility]. Legall y authen ticate d by LAUREN Andujar MD 02-28 09:28: 40 CC'ed Logic: Orderi ng Provid er: LAUREN Andujar Attend ing Provid er: RICH Wilhelm Referr ing Provid er: RICH Wilhelm Admitt ing Provid er: RICH Wilhelm [facility] ([address] , [place], [address], 03/06/2025 12:04:12 03/05/20 25 02/28/2025 pharm acolo gic nucle ar stres s test STRESS [facility] DATE OF SERVIC E: 2024 PROVID ER: CHARLI SELLERS MD STUDY: Lexisc an nuclea r stress test The patien t is a 64-yea r-old male, admitt ed for chest pain. At rest, he had a heart rate of 62 beats per minute . Restin g EKG was normal sinus rhythm . Restin g blood pressu re was 118/78 mmHg. At rest, he receiv ed 9.86 millic urie of the inject ion of Cardio lite and then 40 minute s later, the rest images were done. Then, the patien t receiv ed 0.4 mg IV inject ion of Lexisc an over 10 second s and 20 second s later was follow ed by 32.5 millic urie IV inject ion of Cardio lite and then in 40 minute s, stress test and gated images with the polar maps were done. After the Lexisc an inject ion, the patien t was monito red up to 10 minute s. His restin g heart rate of 62 beats per minute kaylin to a maximu m heart rate of 99 beats per minute that repres ents approp riate respon se of the heart rate to Lexisc an inject ion. His restin g blood pressu re of 118/78 mmHg went up to 128/84 mmHg. During the monito ring period , the patien t does not have any chest pain. There was mild shortn ess of breath . There was no ST or T-wave change s sugges tive of ischem ia. There was no arrhyt hmia at the end of the monito ring. His hemody namics return ed back to his baseli ne and there was no compli cation . He tolera lyssa the stress test well. FINDIN GS: Showed that the qualit y of the study was good. There was no signif icant attenu ation artifa ct. LV cavity during stress was normal . TID was 1.12. Right ventri orville was also normal . No lung activi ty seen. SPECT images showed there was homoge neous tracer distri bution throug hout the myocar dium with no fixed or revers ible defect s seen. No ischem ia demons trated summed differ ence score was 0. Gated SPECT images showed normal wall thicke ethan and motion throug hout the myocar dium with a calcul ated ejecti on fracti on of 64% which is normal . In conclu diana, normal Lexisc an nuclea r stress test. No Lexisc an induce d ischem ia demons trated . Normal ejecti on fracti on. DICTAT ED BY: CHARLI SELLERS MD MA/MOD L DD: 2024 09:45: 04 DT: 2024 10:35: 31 /[id number] Electr onical ly Signed By: LAUREN Andujar MD 03-05 11:39: 14 CC'ed Logic: Orderi ng Provid er: LAUREN Andujar Attend ing Provid er: RICH Wilhelm Referr ing Provid er: RICH Wilhelm Admitt ing Provid er: RICH Wilhelm [facility] ([facility]) [address] , [place], [address], 03/06/2025 12:02:05 Result Notes Documentation Provider Name and Address Organization Details Recorded Time Pharmacologic Nuclear Stress Test : STRESS TEST MARGE FROST [facility] DATE OF SERVICE: 02/27/2025 PROVIDER: WILLIE TURNER MD STUDY: Lexiscan nuclear stress test The patient is a 64-year-old male, admitted for chest pain. At rest, he had a heart rate of 62 beats per minute. Resting EKG was normal sinus rhythm. Resting blood pressure was 118/78 mmHg. At rest, he received 9.86 millicurie of the injection of Cardiolite and then 40 minutes later, the rest images were done. Then, the patient received 0.4 mg IV injection of Lexiscan over 10 seconds and 20 seconds later was followed by 32.5 millicurie IV injection of Cardiolite and then in 40 minutes, stress test and gated images with the polar maps were done. After the Lexiscan injection, the patient was monitored up to 10 minutes. His resting heart rate of 62 beats per minute kaylin to a maximum heart rate of 99 beats per minute that represents appropriate response of the heart rate to Lexiscan injection. His resting blood pressure of 118/78 mmHg went up to 128/84 mmHg. During the monitoring period, the patient does not have any chest pain. There was mild shortness of breath. There was no ST or T-wave changes suggestive of ischemia. There was no arrhythmia at the end of the monitoring. His hemodynamics returned back to his baseline and there was no complication. He tolerated the stress test well. FINDINGS: Showed that the quality of the study was good. There was no significant attenuation artifact. LV cavity during stress was normal. TID was 1.12. Right ventricle was also normal. No lung activity seen. SPECT images showed there was homogeneous tracer distribution throughout the myocardium with no fixed or reversible defects seen. No ischemia demonstrated summed difference score was 0. Gated SPECT images showed normal wall thickening and motion throughout the myocardium with a calculated ejection fraction of 64% which is normal. In conclusion, normal Lexiscan nuclear stress test. No Lexiscan induced ischemia demonstrated. Normal ejection fraction. DICTATED BY: WILLIE TURNER MD MA/MODL /[id number] Electronically Signed By: JOHNNY TAPIA MD 2025-03-05 11:39:14 CC'ed Logic: Ordering Provider: JOHNNY TAPIA Attending Provider: DESTINY DELUCA Referring Provider: DESTINY DELUCA Admitting Provider: DESTINY Burton [facility] 03/06/2025 12:02:05 Medical Equipment None Reported. Allergies No known drug allergies Medications Name Sig Start Date Stop Date Status Note LastModified by Organization Details LastModified Time venlafaxine ER 75 mg capsule,ext ended release 24 hr TAKE 1 CAPSULE BY MOUTH ONCE DAILY active Not Available Not Available No t Available atorvastati n 20 mg tablet TAKE 1 TABLET BY MOUTH ONCE DAILY active Not Available Not Available No t Available sildenafil 50 mg tablet TAKE 1 TABLET BY MOUTH NEEDED active Not Available Not Available No t Available cetirizine 10 mg tablet TAKE 1 TABLET BY MOUTH ONCE DAILY active Not Available Not Available No t Available atorvastati n 10 mg tablet TAKE 1 TABLET BY MOUTH ONCE DAILY AT NIGHT active Not Available Not Available No t Available azithromyci n 250 mg tablet TAKE 2 TABLETS BY MOUTH ON DAY 1, AND THEN TAKE 1 TABLET BY MOUTH ONCE A DAY ON DAY 2 THROUGH DAY 5 active Not Available Not Available No t Available benzonatate 200 mg capsule TAKE 1 CAPSULE BY MOUTH THREE TIMES DAILY NEEDED FOR COUGH active Not Available Not Available No t Available valacyclovi r 1 gram tablet TAKE 1 TABLET BY MOUTH TWICE DAILY active Not Available Not Available No t Available promethazin e 12.5 mg tablet TAKE 1 TABLET BY MOUTH THREE TIMES DAILY FOR NAUSEA active Not Available Not Available No t Available venlafaxine ER 150 mg capsule,ext ended release 24 hr TAKE 1 CAPSULE BY MOUTH ONCE DAILY active Not Available Not Available No t Available ciprofloxac in 500 mg tablet TAKE 1 TABLET BY MOUTH TWICE DAILY FOR 6 WEEKS active Not Available Not Available No t Available omeprazole 40 mg capsule,del ayed release TAKE 1 CAPSULE BY MOUTH ONCE DAILY active Not Available Not Available No t Available glimepiride 1 mg tablet TAKE 1 TABLET BY MOUTH ONCE DAILY active Not Available Not Available No t Available dicyclomine 20 mg tablet active Not Available Not Available Not Available benzonatate 100 mg capsule TAKE 1 CAPSULE BY MOUTH TWICE DAILY NEEDED FOR COUGH active Not Available Not Available No t Available naproxen sodium 550 mg tablet TAKE 1 TABLET BY MOUTH EVERY 12 HOURS NEEDED active Not Available Not Available No t Available metformin 1,000 mg tablet TAKE 1 TABLET BY MOUTH TWICE DAILY active Not Available Not Available No t Available gabapentin 300 mg capsule TAKE 1 CAPSULE BY MOUTH THREE TIMES DAILY active Not Available Not Available No t Available mirtazapine 15 mg tablet TAKE 1 TABLET BY MOUTH EVERY DAY AT BEDTIME active Not Available Not Available No t Available ergocalcife rol (vitamin D2) 1,250 mcg (50,000 unit) capsule TAKE 1 CAPSULE BY MOUTH ONCE A WEEK active Not Available Not Available No t Available polyethylen e glycol 3350 17 gram/dose oral powder active Not Available Not Available Not Available methylpredn isolone 4 mg tablets in a dose pack TAKE DIRECTED ON PACKAGE active Not Available Not Available No t Available ondansetron 4 mg disintegrat ing tablet active Not Available Not Available N ot Available fluticasone propionate 50 mcg/actuati on nasal spray,suspe nsion USE 1 SPRAY(S) IN EACH NOSTRIL ONCE DAILY NEEDED FOR NASAL CONGESTIO N active Not Available Not Available No t Available lisinopril 2.5 mg tablet TAKE 2 TABLETS BY MOUTH ONCE DAILY active Not Available Not Available No t Available oxycodone 5 mg tablet active Not Available Not Available No t Available rosuvastati n 10 mg tablet TAKE 1 TABLET BY MOUTH ONCE DAILY active Not Available Not Available No t Available rosuvastati n 20 mg tablet TAKE 1 TABLET BY MOUTH ONCE DAILY active Not Available Not Available No t Available sildenafil (pulmonary hypertensio n) 20 mg tablet TAKE 1 TABLET BY MOUTH NEEDED 02/05 completed Not Available Not Available Not Available Jardiance 10 mg tablet TAKE 1 TABLET BY MOUTH ONCE DAILY active Not Available Not Available No t Available Ozempic 0.25 mg or 0.5 mg (2 mg/1.5 mL) subcutaneou s pen injector INJECT 0.25 MG SUBCUTANE OUSLY ONCE A WEEK FOR 4 WEEKS THEN INJECT 0.5MG WEEKLY active Not Available Not Available No t Available Ozempic 1 mg/dose (4 mg/3 mL) subcutaneou s pen injector INJECT 1 MG (0.75 ML) UNDER THE SKIN ONCE WEEKLY FOR DIABETES active Not Available Not Available No t Available Ozempic 0.25 mg or 0.5 mg (2 mg/3 mL) subcutaneou s pen injector INJECT 0.25 MG SUBCUTANE OUSLY ONCE WEEKLY FOR 4 WEEKS, THEN INJECT 0.5 MG ONCE WEEKY active Not Available Not Available No t Available Vitals Date Recorded Body height Body mass index (BMI) Body weight Body temperature Provider Name and Address Organization Details Last Updated DateTime 01/12/2024 180.34 cm 29.4 kg/m2 53372.99 g 97.5 [degF] Amparo Rush [facility] [place] 01/12/2024 09:41:19 Date Recorded Body height Body mass index (BMI) Body weight Body temperature Provider Name and Address Organization Details Last Updated DateTime 02/05/2025 180.34 cm 29.4 kg/m2 41216.99 g 98.1 [degF] Roger Beasley [facility] [place] 02/05/2025 09:07:14 Social History Question Answer Notes LastModified by [employer] Details LastModified Time Tobacco Smoking Status Never Smoker Amparo Rush ally, [facility] [place] 01/12/2024 09:42:19 What Is Your Level Of Caffeine Consumption? Occasional Information not available 01/12/2024 Sex: Unknown Functional Status Question Answer Note LastModified by [employer] Details LastModified Time What is your level of alcohol consumption? Occasional [id number] Information not available 01/12/2024 Mental Status None recorded. Family History Relationship Description Onset Age of this Age Resolved Age Notes LastModified by Organization Details LastModified Time Mother Alzheimer's disease [email or web address] Not available 01/11 09:41:52 Father Chronic obstructive pulmonary disease [email or web address] Not available 01/11 09:42:06 Medical History No medical history recorded. Past Encounters Encounter ID Performer Location Encounter Start Date Encounter Closed Date Diagnosis/Indication Diagnosis SNOMED-CT Code Diagnosis ICD10 Code Diagnosis IMO Codes Diagnosis Note [id number] Adan Mac Jr, MD [facility] [address] [address] 01/12/2024 09:24:44 01/12/2024 10:31:13 Screening for malignant neoplasm of prostate 739110234 Z12.5 patient with history of mildly elevated PSA. Prostate examinatio n today is benign. We will check PSA. Prostatitis 7733928 N41. 9 patient with history of hematosper joe several months ago and some recent postvoid dribbling and risky sexual intercours e. He has been treated for prostatiti s with an antibiotic for the past several weeks with resolution of his previous symptoms. We discussed conservati ve measures to decrease his risk of prostatiti s. Erectile dysfunction 860 275204 F52.21 patient with history of erectile dysfunctio n. States he has taken sildenafil in the past with good results. Prescripti on filled today. [id number] Adan Mac Jr, MD [facility] [address] [address] 02/05/2025 09:03:56 02/05/2025 10:03:29 Prostate specific antigen above reference range 070810240 R97.20 [id number] Patient with long history of fluctuatin g PSA. PSA last year was 7.5. We will repeat today. Prostate exam is benign. Erectile dysfunction 860 757202 N52.9 [id number] patient with history of erectile dysfunctio n. States he has taken sildenafil in the past with good results. We will increase his prescripti on to 50 mg of sildenafil from 20. Hemospermia 12695996 R36 .1 [id number] Patient with occasional hematosper joe. He states a large amount of blood times and we discussed there has a possible blood vessel that may rupture. If it persist we discussed cystoscopy fulguratio n. 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 He states a 60 degree curvature to the left. Subtle plaque is noted at the left base today. We discussed treatment options. He prefers to watch and wait for now. Health Concerns Section Related Observation LastModified by Organization Detai ls LastModified Time None Recorded Concern Status LastModified by Organization Details LastModified Time None Recorded Advance Directives Directive None Recorded Payers Insurance Date Sequence Insurance Name Policy Number Policy Galarza Covered Member ID Galarza Member ID Guarantor Name 02/05/2025 1 [place] [id number] Marge Frost [id number] Marge Frost 03/07/2025 1 [facility] [id number] Marge Frost [id number] Marge Frost Notes Date Note Type Note Provider Name and Address Organization Details Recorded Time 01/12/2024 text/html ROS as noted in the HPI Patient is a 63-year-old white male referred for recent symptoms of prostatitis. He would seen his primary care physician last month after some risky sexual intercourse with anal penetration. States that he had symptoms of some postvoid dribbling but denied any dysuria or discharge. He has been on antibiotic for the past month with resolution of the voiding symptom. Patient states that he did have some hematospermia about 4 months ago that was an isolated incidence and had not seen any since.Patient states he has a history of slightly elevated PSA in the past but has had a PSA to his knowledge for quite some time.Patient also states some erectile dysfunction and has taken sildenafil in the past and requests a refill. Adan Mac Jr, MD [address] [place] [address], [address], [place], [address], [place] [facility] [place] 01/12/2024 13:25:54 02/05/2025 text/html ROS as noted in the HPI Patient is a 64-year-old white male with history of prostatitis, elevated PSA and erectile dysfunction. He returns today for routine yearly follow-up. He states new history of some penile curvature creating some pain with intercourse. States that this started about a year ago. He denies any trauma.Patient with long history of elevated PSA that has fluctuated up and down. His PSA last year was 7.5.Patient states a couple of bouts of hematospermia over the past year. States he is very sexually active.Patient with history of erectile dysfunction and continues on sildenafil 40-60 mg. Adan Mac Jr, MD [address] [place] [address], [address], [place], [address], [facility] - [facility] - [place] & [place] 02/05/2025 15:59:11
--- OUTSIDE RECORDS SUMMARY | 2025-08-08 10:07 | XMS_ITS | Clinical Summary ---
Author Organization Healthcare Address [address] [place] [address] Care Team Providers Care Medical Transcriptionist Name Role Phone Emanuel Grande MD Primary Care Provider [phone] Social History Tobacco Use Types Packs/Day Years Used Date Smoking Tobacco: Never Alcohol Use Standard Drinks/Week Comments Yes 0 (1 standard drink = 0.6 oz pur e alcohol) Sex and Gender Information Value Date Recorded Sex Assigned at Not on file Legal Sex Male 6:16 PM EDT Gender Identity Not on file Sexual Orientation Not on file Last Filed Vital Signs Vital Sign Reading Time Taken Comments Blood Pressure 144/105 03/04/2019 10:20 AM EDT Pulse 68 02/27/2018 9:54 AM EDT Temperature - - Respiratory Rate - - Oxygen Saturation - - Inhaled Oxygen Concentration - - Weight 104 kg (228 lb 6.3 oz) 03/04/2019 10:20 A M EDT Height 180.3 cm (5' 11 ) 03/04/2019 10:20 AM EDT Body Mass Index 31.85 03/04/2019 10:20 AM EDT Plan of Treatment Health Maintenance Due Date Last Done Comments [facility]-Depression Screening 1960 [facility]-/Child/Adol SDOH Screenings 1960 [facility]- SDOH Screenings 1978 [facility]-Adult SDOH Screenings 1978 [facility]-DTaP,Tdap,and Td Vaccine s (1 - Tdap) 12/30/1979 CT Colonography 2005 Colonoscopy 2005 FIT-DNA 2005 FIT 2005 FOBT 2005 Sigmoidoscopy 2005 [facility]-Colorectal Cancer Screening 2005 [facility]-Pneumococcal Vaccine: 50 + Years (1 of 1 - PCV) 2010 [facility]-Zoster Vaccines (1 of 2) 2010 [id number] Vaccine (1 - 20 24-25 season) 2025 [facility]-Influenza Vaccine (#1) 2025 [facility]-RSV Vaccine: 60+ Years o r (1 - 1-dose 75+ series) 12/30/2035 HPV Vaccines Aged Out No longer eligi ble based on patient's age to complete this topic [facility]-HIB Vaccines Aged Out No longer e ligible based on patient's age to complete this topic [facility]-Hepatitis A Vaccines Aged Out No longer eligible based on patient's age to complete this topic [facility]-IPV Vaccines Aged Out No longer e ligible based on patient's age to complete this topic [facility]-Rotavirus Vaccines Aged Out No lo nger eligible based on patient's age to complete this topic Care Teams Medical Transcriptionist Relationship Specialty Start Date End Date Emanuel Grande MD [id number] [id number] PCP - General 02/26/21
--- OUTSIDE RECORDS SUMMARY | 2025-08-08 10:07 | XMS_ITS | Clinical Summary ---
Author Organization [facility] Address [address] [place] [address] Care Team Providers Care Cafeteria Director Name Role Phone Raad Millard MD Primary Care Provider Allergies No known active allergies Medications sildenafil (REVATIO) 20 MG tablet 11 9 Active Omeprazole 20 MG tablet delayed-release 1 9 Active amoxicillin-clavu lanate (AUGMENTIN) 875-125 MG per tabletIndications :Acute recurrent pansinusitis Take 1 tablet by mouth 2 (Two) Times a Day. 20 tablet 9 Active predniSONE (DELTASONE) 10 MG tabletIndications :Acute recurrent pansinusitis 6 tabs po x 2 days; 4 tabs po x 2 days; 2 tabs po x 2 days; stop/ tapering dose x 6 days 24 tablet 9 Active losartan (COZAAR) 25 MG tablet Take 25 mg by mouth Daily. 0 Active Active Problems No known active problems Family History Medical History Relation Name Comments Lung disease Father Relation Name Status Comments Father Social History Tobacco Use Types Packs/Day Years Used Date Smoking Tobacco: Never Abuse Screen Answer Date Recorded Unsafe at Home or Work/School Not on file Feels Threatened by Someone? Not on file 09/2023 Does Anyone Keep You from Co ntacting Others or Doint Things Outside the Home? Not on file 07/27/2023 Physical Sign of Abuse Present Not on file 1 Housing Stability Answer Date Recorded Current Living Arrangements Not on file 07/16 Potentially Unsafe Housing Conditions Not on husam e 07/27/2023 Family and Community Support Answer Thaddeus e Recorded Help with Day-to-Day Activities Not on file 07/27/2023 Lonely or Isolated Not on file 07/27/2023 Employment Answer Date Recorded Do you want help finding or keeping work or a nona b? Not on file 07/27/2023 Disabilities Answer Date Recorded Concentrating, Remembering, or Making Decisions Difficulty Not on file 07/27/2023 Doing Errands Independently Difficulty Not on fi le 07/27/2023 Education Answer Date Recorded Help with school or training? Not on file Preferred Language Not on file 07/27/2023 Sex and Gender Information Value Date Recorded Sex Assigned at Not on file Legal Sex Male 3:27 PM EDT Gender Identity Not on file Sexual Orientation Not on file Last Filed Vital Signs Vital Sign Reading Time Taken Comments Blood Pressure 132/88 04/14/2019 1:41 PM EDT Pulse 112 12/03/2019 4:30 PM EST Temperature 37.3 C (99.1 F) 12/03/2019 4:30 PM EST Respiratory Rate 16 12/03/2019 4:30 PM EST Oxygen Saturation 96% 12/03/2019 4:30 PM EST Inhaled Oxygen Concentration - - Weight 110 kg (243 lb) 12/03/2019 4:30 PM EST Height 180.3 cm (5' 11 ) 12/03/2019 4:30 PM EST Body Mass Index 33.89 12/03/2019 4:30 PM EST Plan of Treatment Health Maintenance Due Date Last Done Comments TDAP/TD VACCINES (1 - Tdap) 12/30/1979 COLOGUARD 2005 COLON CANCER SCREENING 5 YEAR SIGMOIDOSCOPY 2005 COLONOSCOPY [address] SCREENING [address] COLONOGRAPHY 2005 FECAL OCCULT BLOOD TEST 2005 FIT Testing (1 year) 2005 Pneumococcal Vaccine 50+ (1 of 1 - PCV) 2010 ZOSTER VACCINE (1 of 2) 2010 ANNUAL PHYSICAL 06/25/2018 HEPATITIS C SCREENING 06/25/2018 INFLUENZA VACCINE 05/16/2025 Care Teams Cafeteria Director Relationship Specialty Start Date End Date Raad Millard MD PCP - General Family Medicine 06/25/18
== END 2025-08-07 23:59 ==
LOC: LAB.DROPOF 08-08 10:05
PROVIDERS: PCP Family Medicine; Visit Provider Family Medicine
DX: E78.5 Hyperlipidemia, unspecified (principal); I10 Essential (primary) hypertension; E11.9 Type 2 diabetes mellitus without complications; E66.9 Obesity, unspecified; R68.89 Other general symptoms and signs; R97.20 Elevated prostate specific antigen [PSA]
CPT/HCPCS: 80053; 83036; 84443; 85025; G0103